=== PATIENT | male | born 1990 | race Caucasian/White ===

== ENCOUNTER 2020-06-27 23:02 | Emergency (ER) | payer BC ==
[2020-06-27] MEDS ORDERED: Aspirin 81 MG Tab.Chew PO ONE (23:27)
[2020-06-27] MEDS ORDERED: Ketorolac 60 MG/2 ML SDV IM ONE (23:28)
--- NOTE | 2020-06-27 23:30 | EDM.PDOC ---
ED HPI GENERAL MEDICAL PROBLEM - General Chief Complaint: Chest Pain Stated Complaint: CHEST PAIN Time Seen by Provider: 06/27/20 23:28 Source of Information: Reports: Patient, Family, RN Notes Reviewed History Limitations: Reports: No Limitations - History of Present Illness INITIAL COMMENTS - FREE TEXT/NARRATIVE: 30-year-old gentleman presents emergency department a complaint of chest pain, he states that chest pain started 1 hour prior sharp stabbing in nature predominantly under his left breast denies any trauma states does have family history with father with coronary artery disease no nausea no diaphoresis no shortness of breath Chest Pain Score (Numeric/FACES): 10 - Related Data Allergies Allergy/AdvReac Type Severity Reaction Status Date / Time amoxicillin Allergy Hives Verified 06/27/20 23:17 latex Allergy Hives Verified 06/27/20 23:17 Penicillins Allergy Hives Verified 06/27/20 23:17 Home Meds: Home Meds Escitalopram Oxalate [Lexapro] 15 mg PO DAILY 06/27/20 [History] Mirtazapine [Remeron] 15 mg PO BEDTIME 06/27/20 [History] hydrOXYzine HCL [Atarax] 25 mg PO DAILY 06/27/20 [History] Past Medical History Musculoskeletal History: Reports: Fracture Psychiatric History: Reports: Anxiety, Depression - Past Surgical History HEENT Surgical History: Reports: Adenoidectomy, Tonsillectomy Musculoskeletal Surgical History: Reports: Arthroscopic Knee, Shoulder Surgery Other Musculoskeletal Surgeries/Procedures:: ankle surgery. neck surgery Social & Family History - Tobacco Use Tobacco Use Status *Q: Never Tobacco User - Recreational Drug Use Recreational Drug Use: No ED ROS GENERAL - Review of Systems Review Of Systems: See Below Constitutional: Reports: No Symptoms Respiratory: Reports: No Symptoms Cardiovascular: Reports: Chest Pain GI/Abdominal: Reports: No Symptoms ED EXAM, GENERAL - Physical Exam Exam: See Below Exam Limited By: No Limitations General Appearance: Alert, WD/WN, No Apparent Distress Respiratory/Chest: No Respiratory Distress, Lungs Clear, Normal Breath Sounds, No Accessory Muscle Use, Chest Non-Tender, Other (tender over left breast, chest wall area) Cardiovascular: Regular Rate, Rhythm, No Murmur GI/Abdominal: Soft, Non-Tender Extremities: No Pedal Edema #1 Interpretation EKG Date: 06/28/20 Rhythm: NSR [place]: Normal P-Wave: Present QRS: Normal ST-T: Normal QT: Normal Comparison: NA - No Prior EKG Course - Vital Signs Last Recorded V/S: Last Vital Signs Temp 97.8 F 06/27/20 23:14 Pulse 114 H 06/27/20 23:14 Resp 20 06/27/20 23:14 BP 135/82 06/27/20 23:14 Pulse Ox 97 06/27/20 23:14 - Orders/Labs/Meds Orders: Active Orders 24 hr Category Date Time Status Cardiac Monitoring [RC] .As Directed Care 06/27/20 23:27 Active EKG Documentation Completion [RC] ASDIRECTED Care 06/27/20 23:28 Active Chest 1V Frontal [CR] Stat Exams 06/27/20 23:28 Taken EKG 12 Lead [EK] Stat Ther 06/27/20 23:28 Ordered Labs: Laboratory Tests 06/27/20 06/27/20 06/27/20 Range/Units 23:39 23:39 23:39 WBC 8.1 (4.5-11.0) K/uL RBC 5.30 (4.30-5.90) M/uL Hgb 16.2 H (12.0-15.0) g/dL Hct 47.2 (40.0-54.0) % MCV 89 (80-98) fL MCH 31 (27-31) pg MCHC 34 (32-36) % Plt Count 329 (150-400) K/uL Neut % (Auto) 62 (36-66) % Lymph % (Auto) 30 (24-44) % [place] % (Auto) 6 (2-6) % Eos % (Auto) 1 L (2-4) % Baso % (Auto) 1 (0-1) % Sodium 143 (140-148) mmol/L Potassium 3.6 (3.6-5.2) mmol/L Chloride 106 (100-108) mmol/L Carbon Dioxide 18 L (21-32) mmol/L Anion Gap 22.6 H (5.0-14.0) mmol/L BUN 16 (7-18) mg/dL Creatinine 1.0 (0.8-1.3) mg/dL Est Cr Clr Drug Dosing 123.30 mL/min Estimated GFR (MDRD) > 60 (>60) Glucose 130 H (74-106) mg/dL Calcium 9.2 (8.5-10.1) mg/dL Total Bilirubin 0.5 (0.2-1.0) mg/dL AST 18 (15-37) U/L ALT 41 (12-78) U/L Alkaline Phosphatase 87 (46-116) U/L Troponin I < 0.017 (0.000-0.056) ng/mL Total Protein 7.6 (6.4-8.2) g/dL Albumin 4.1 (3.4-5.0) g/dL Globulin 3.5 (2.3-3.5) g/dL Albumin/Globulin Ratio 1.2 (1.2-2.2) Ethyl Alcohol 74 mg/dL Meds: Medications Discontinued Medications Generic Name Dose Route Start Last Admin Trade Name Freq PRN Reason Stop Dose Admin Aspirin 324 mg 06/27/20 23:27 06/27/20 23:36 Aspirin 81 Mg Tab.Chew PO 06/27/20 23:28 324 mg ONETIME ONE Administration Ketorolac Tromethamine 60 mg 06/27/20 23:28 06/27/20 23:37 Ketorolac 60 Mg/2 Ml Sdv IM 06/27/20 23:29 60 mg ONETIME ONE Administration Departure - Departure Time of Disposition: 00:31 Disposition: Home, Self-Care 01 Condition: Fair Clinical Impression: Chest wall pain Instructions: Nonspecific Chest Pain, Adult Referrals: Ayanna Slade PA-C [Primary Care Provider] - Forms: ED Department Discharge Additional Instructions: Continue to use Tylenol or Motrin as needed for pain control, please followup with your primary care provider in 3-5 days if not better, please call return to the emergency department with worsening of symptoms. Sepsis Event Note (ED) - Evaluation Sepsis Screening Result: No Definite Risk - Focused Exam Vital Signs: Vital Signs Temp Pulse Resp BP Pulse Ox 06/27/20 23:14 97.8 F 114 H 20 135/82 97 - My Orders Last 24 Hours: My Active Orders 06/27/20 23:27 Cardiac Monitoring [RC] .As Directed 06/27/20 23:28 EKG Documentation Completion [RC] ASDIRECTED Chest 1V Frontal [CR] Stat EKG 12 Lead [EK] Stat - Assessment/Plan Last 24 Hours: My Active Orders 06/27/20 23:27 Cardiac Monitoring [RC] .As Directed 06/27/20 23:28 EKG Documentation Completion [RC] ASDIRECTED Chest 1V Frontal [CR] Stat EKG 12 Lead [EK] Stat Plan: Assessment Acuity = acute Site and laterality = chest wall pain Etiology = unknown Manifestations = none Location of injury = Home Lab values = CBC, CMP, troponin, EKG, chest x-ray all within normal limits alcoh ol is 74 Plan Good relief with Toradol provided in the emergency department and follow-up primary care 3 to 5 days if not better This note was dictated using [employer] voice recognition software please call with any questions on syntax or grammar.
--- NOTE | 2020-06-28 10:52 | CR ---
CHEST: Portable 06/27/2020 11:53 PM CLINICAL HISTORY:Chest pain COMPARISON:None FINDINGS: There is less than optimal inspiration. This exaggerates lung markings. No infiltrate effusion or pneumothorax seen. IMPRESSION: Poor inspiratory level No acute cardiopulmonary process
== END 2020-06-28 00:47 | disposition home or self-care (01) ==
LOC: JP.ED 23:02
DX: R07.89 Other chest pain (principal); Z88.0 Allergy status to penicillin; Z91.040 Latex allergy status
CPT/HCPCS: 36415; 71045; 71045-26; 80053; 80307; 84484; 85025; 93005; 96372; 99283; 99285-25; A9270-GY; J1885

== ENCOUNTER 2020-12-13 22:23 | Emergency (ER) | payer BC, OTHER ==
--- NOTE | 2020-12-13 22:31 | EDM.PDOC ---
ED HPI GENERAL MEDICAL PROBLEM - General Chief Complaint: Laceration Stated Complaint: CUT RIGHT HAND Time Seen by Provider: 12/13/20 22:28 Source of Information: Reports: Patient - History of Present Illness INITIAL COMMENTS - FREE TEXT/NARRATIVE: Rocco Frias presents with an acute laceration to right hand after he punched glass that broke prior to arrival at home. he was frustrated from "working on a motor that won". he notes laceration to dorsum of right hand. he is right handed. he notes the glass did "break". denies pain with finger movement or limitation of movement from pain. . not on blood thinners no numbness not on steroids did drink alcohol tonight. no other injury previous laceration 1 year ago, repaired at that time and td updated 1 year ago. Right Hand Pain Score (Numeric/FACES): 0 - Related Data Allergies Allergy/AdvReac Type Severity Reaction Status Date / Time amoxicillin Allergy Hives Verified 06/27/20 23:17 latex Allergy Hives Verified 06/27/20 23:17 Penicillins Allergy Hives Verified 06/27/20 23:17 Home Meds: Home Meds Escitalopram Oxalate [Lexapro] 15 mg PO DAILY 06/27/20 [History] Mirtazapine [Remeron] 15 mg PO BEDTIME 06/27/20 [History] hydrOXYzine HCL [Atarax] 25 mg PO DAILY 06/27/20 [History] Past Medical History Musculoskeletal History: Reports: Fracture Psychiatric History: Reports: Anxiety, Depression - Past Surgical History HEENT Surgical History: Reports: Adenoidectomy, Tonsillectomy Musculoskeletal Surgical History: Reports: Arthroscopic Knee, Shoulder Surgery Other Musculoskeletal Surgeries/Procedures:: ankle surgery. neck surgery ED ROS GENERAL - Review of Systems Review Of Systems: See Below (all other 10 negative. No fever, runny nose, sore throat, change in taste or smell. Is not Covid vaccinated. He notes a slight laceration to his right hand as above. he rePorts a previous remote laceration to a finger repaired approximate year ago.) ED EXAM, SKIN/RASH Exam: See Below (3.7 cm clean linear laceration to the dorsum of his right hand. This does violate the epidermis. Small 1 mm fragment of glass of the dermal margin. We was explored deeply no deeper injury.) Exam Limited By: No Limitations General Appearance: Alert, Other (talking on his cell phone to his "grandcristi" upon ED arrival. ) Throat/Mouth: Other (talkative. ) Head: Normocephalic Neck: Normal Inspection Respiratory/Chest: No Respiratory Distress Cardiovascular: Normal Peripheral Pulses, Other (normal cap refil) Extremities: Other (abrasion over forearm. no tenderness to elbow, wrist or scaphoid. full rom of elbow, wrist and hand, fingers. ) Neurological: Alert, Oriented, Other (gcs 15. intact distal sensory. intact median, radial, ulnar motor and sensory. ) Psychiatric: Normal Affect, Other (admit to etoh use tonight. did not drive to hospital. jovial, tangential, telling jokes. ) Skin: Wound/Incision (dorsum or right hand over 5th mcp joint (patient denies fight bite). intact extension of 4th/5th fingers without pain), Other ED SKIN PROCEDURES - Laceration/Wound Repair Right Dorsal Hand Appearance: Subcutaneous, Clean Distal NVT: Neuro & Vascular Intact, No Tendon Injury Anesthetic Type: Local Local Anesthesia - Lidocaine (Xylocaine): 1% Plain Local Anesthetic Volume: 3cc Skin Prep: Chlorhexidine (Hibiciens), Saline, Sterile Drape Saline Irrigation (cc's): 200 Exploration/Debridement/Repair: Wound Explored, Explored to Base, Minimal Debridement, Other (sharp iris scissors) Closed with: Sutures Lac/Wound length In cm: 3.7 Suture Size: 5-0 # of Sutures: 8 Suture Type: Nylon Drain Placement: No Sterile Dressing Applied: Nurse Tetanus Status Addressed: Yes Complication Description: explored to base. no evidence of tendon or joint involvement. 1 small 1 mm piece of glass at dermal edge removed prior to closure. Course - Vital Signs Text/Narrative:: Patient is right-handed that presents after he punched a glass at home that shattered. He notes that he thinks it is unlikely he broke his hand but does admit he certainly could have occult glass or foreign body. Patient has no signs of neurologic abnormalities. His tetanus is up-to-date. Patient has a quite jovial affect and admits to alcohol use tonight. He is not immune compromise. lidocaine 3 mls via 27 g needle. tolerated well. hand soaked and wound irrigated on dorsum of hand. abrasions to right forearm cleansed as well. patient voiced understanding of risk of fb/glass and agreed with xrays reluctantly. 2258: X-ray three-view right hand reviewed in radiology suite. There is no fracture. No dislocation. There is a 1 mm opacity that could be occult foreign body or spicule of glass in the very dorsum of his right hand distal to the area of laceration. 2310: laceration repaired. fb removed and wound copiously irrigated, explored and repaired. risk of occult fb, occult injury or fracture reviewed and understood. patient notes "i'm going to pull these out and use my hand". I recommended hand rest, work restriction and to keep clean, dry and covered as well as need for suture removal in 14 day and reasons to return. patient voiced understanding. This note was completed with voice recognition and may contain errors in grammar, punctuation etc. Of note verbal instructions were also provided to the patient's family via phone who voiced understanding of his need for follow-up and suture removal. I also reviewed the x-ray over read process. Last Recorded V/S: Last Vital Signs Temp 36.5 C 12/13/20 22:32 Pulse 88 12/13/20 22:32 Resp 16 12/13/20 22:32 BP 153/78 H 12/13/20 22:32 Pulse Ox 99 12/13/20 22:32 - Orders/Labs/Meds Orders: Active Orders 24 hr Category Date Time Status Hand Comp Min 3V Rt [CR] Stat Exams 12/13/20 22:39 Taken Meds: Medications Discontinued Medications Generic Name Dose Route Start Last Admin Trade Name Amanda PRN Reason Stop Dose Admin Lidocaine HCl 20 ml 12/13/20 22:35 12/13/20 22:46 Lidocaine 1% 20 Ml Mdv INJECT 12/13/20 22:36 20 ml ONETIME ONE Administration Departure - Departure Time of Disposition: 23:20 Disposition: Home, Self-Care 01 Condition: Good Clinical Impression: Hand laceration, Arm abrasion - Discharge Information *PRESCRIPTION DRUG MONITORING PROGRAM REVIEWED*: Not Applicable *COPY OF PRESCRIPTION DRUG MONITORING REPORT IN PATIENT CROW: Not Applicable Instructions: Laceration Care, Adult, Sutures, [place], or Adhesive Wound Closure, [id number] Additional Instructions: Keep your hand clean dry and covered. Today's x-rays reviewed preliminary. Final x-ray report/read by radiologist will occur in the next day. There is always a chance of retained or occult foreign body or deeper hand injury. Your tetanus is noted to be up-to-date. Please return if fever, uncontrolled pain, skin redness, tachycardia 100.4. Please see attached discharge instructions regarding laceration care. Have sutures removed in 10 to 14 days. Care Plan Goals: Please keep your hand clean dry and covered. Sutures removed in 14 days. Minimize gripping or grasping. Your x-rays today are preliminary negative for fracture. There was a small 1 mm piece of glass that I removed prior to closing the wound. Your 8 sutures should be removed in 14 days. Please return for suture removal or see your prior care physician. Do not drive today. drink alcohol in moderation. do not punch items. Sepsis Event Note (ED) - Focused Exam Vital Signs: Vital Signs Temp Pulse Resp BP Pulse Ox 12/13/20 22:32 36.5 C 88 16 153/78 H 99 - My Orders Last 24 Hours: My Active Orders 12/13/20 22:39 Hand Comp Min 3V Rt [CR] Stat - Assessment/Plan Last 24 Hours: My Active Orders 12/13/20 22:39 Hand Comp Min 3V Rt [CR] Stat
[2020-12-13] MEDS ORDERED: Lidocaine 1% 20 ML MDV INJECT ONE (22:35)
--- NOTE | 2020-12-14 09:29 | CR ---
Hand Comp Min 3V Rt CLINICAL HISTORY: Punched glass FINDINGS: There is no acute fracture or dislocation of the hand. There is a small radiopacity in the dorsal lateral aspect near the fifth MCP joint. Impression: No fracture Small foreign body near the right fifth MCP joint
== END 2020-12-13 23:24 | disposition home or self-care (01) ==
LOC: JP.ED 22:23
DX: S61.411A Laceration without foreign body of right hand, initial encounter (principal); S50.811A Abrasion of right forearm, initial encounter; Z91.040 Latex allergy status; Z88.0 Allergy status to penicillin; W25.XXXA Contact with sharp glass, initial encounter; Y92.009 Unspecified place in unspecified non-institutional (private) residence as the place of occurrence of the external cause
CPT/HCPCS: 12002; 73130-26-RT; 73130-RT; 99283-25

== ENCOUNTER 2022-02-19 23:41 | Emergency (ER) | payer OTHER ==
[2022-02-19] MEDS ORDERED: Ondansetron 4 MG Tab.DIS PO ONE (23:58)
[2022-02-20 00:13] LABS: ESTIMATED GFR 102 mL/min (>60)
== END 2022-02-20 00:42 | disposition home or self-care (01) ==
LOC: JP.ED 23:41
DX: F10.920 Alcohol use, unspecified with intoxication, uncomplicated (principal); E10.9 Type 1 diabetes mellitus without complications; Z86.16 Personal history of COVID-19; Z88.0 Allergy status to penicillin; Z88.1 Allergy status to other antibiotic agents; Z91.040 Latex allergy status; Y90.6 Blood alcohol level of 120-199 mg/100 ml
CPT/HCPCS: 36415; 80053; 80307; 81001; 82947; 83690; 85025; 99284; Q0162

== ENCOUNTER 2022-03-01 23:30 | Emergency (ER) | payer OTHER | END 2022-03-02 05:47 | disposition home or self-care (01) | LOC: JP.ED 23:30 | DX: R45.851 Suicidal ideations (principal); F10.129 Alcohol abuse with intoxication, unspecified; E10.9 Type 1 diabetes mellitus without complications; Z88.0 Allergy status to penicillin; Z91.040 Latex allergy status; Z88.1 Allergy status to other antibiotic agents; Z79.899 Other long term (current) drug therapy | CPT/HCPCS: 36415; 80305-QW; 80307; 99284 ==

== ENCOUNTER 2022-05-08 13:51 | Emergency (ER) | payer OTHER ==
[2022-05-08] MEDS ORDERED: Sodium Chloride 0.9% 1,000 ML IV STA (14:22)
[2022-05-08] MEDS ORDERED: fentaNYL 100 MCG/2 ML SDV IVPUSH ONE ×2 (14:23→16:15)
[2022-05-08] MEDS ORDERED: Ondansetron 4 MG/2 ML SDV IVPUSH ONE (14:23)
[2022-05-08] MEDS: Sodium Chloride 0.9% 10 ML Syringe FLUSH PRN ×2 (14:43→15:13)
[2022-05-08] MEDS ORDERED: Iopamidol 612 MG/ML 100 ML Bottle IV PRN (14:58)
[2022-05-08] MEDS ORDERED: Sodium Chloride 0.9% 50 ML IV SCH (15:00)
[2022-05-08 15:10] LABS: ESTIMATED GFR 101 mL/min (>60)
[2022-05-08 15:11] LABS: TROPONIN I HIGH SENSITIVITY < 4.0 pg/mL (<=60.3)
[2022-05-08] MEDS ORDERED: Sodium Chloride 0.9% 1,000 ML IV SCH (16:30)
== END 2022-05-08 17:15 | disposition home or self-care (01) ==
LOC: JP.ED 13:51
DX: K59.04 Chronic idiopathic constipation (principal); Z88.0 Allergy status to penicillin; Z88.8 Allergy status to other drugs, medicaments and biological substances; Z91.040 Latex allergy status; Z72.0 Tobacco use
CPT/HCPCS: 36415; 74177; 80053; 81001; 83605; 83690; 84484; 85025; 96361; 96374; 96375; 96376; 99283; 99284; J2405; J3010; J3490; J7030; Q9967

== ENCOUNTER 2023-04-14 18:29 | Emergency (ER) | payer OTHER ==
[2023-04-14] MEDS ORDERED: Ketorolac 30 MG/ML SDV IM ONE (19:11)
[2023-04-14 19:18] LABS: BASOPHILS ABSOLUTE AUTO 0.07 K/uL (0.00-0.10); BASOPHILS PERCENT AUTO 0.8 % (0.1-1.3); EOSINOPHILS ABSOLUTE AUTO 0.12 K/uL (0.00-0.40); EOSINOPHILS PERCENT AUTO 1.4 % (0.0-5.4); HEMATOCRIT 45.5 % (38.4-49.7); HEMOGLOBIN 16.5 g/dL (12.9-16.9); IMMATURE GRAN ABSOLUTE AUTO 0.02 K/uL (0.00-0.23); IMMATURE GRAN PERCENT AUTO 0.2 % (0.0-0.7); LYMPHOCYTES ABSOLUTE AUTO 3.74 K/uL (0.8-3.3); LYMPHOCYTES PERCENT AUTO 42.6 % (11.4-47.7); MEAN CORPUSCULAR HEMOGLOBIN 31.5 pg (31.6-35.5); MEAN CORPUSCULAR HGB CONC 36.3 g/dL (31.6-35.5); MONOCYTES ABSOLUTE AUTO 0.47 K/uL (0.20-0.90); MONOCYTES PERCENT AUTO 5.4 % (3.3-12.6); NEUTROPHILS ABSOLUTE AUTO 4.35 K/uL (1.0-7.6); NEUTROPHILS PERCENT AUTO 49.6 % (40.0-78.1); PLATELET COUNT,PLT 263 K/uL (130-375); RED BLOOD CELL COUNT 5.23 M/uL (4.14-5.76); WHITE BLOOD CELL COUNT,WBC 8.8 K/uL (3.2-11.0)
[2023-04-14 19:38] LABS: A/G RATIO 1.2 (1.2-2.2); ALANINE AMINOTRANSFERASE,ALT 40 U/L (12-78); ALKALINE PHOSPHATASE 73 U/L (46-116); ASPARTATE AMNIOTRANSFERASE,AST 20 U/L (15-37); BILIRUBIN TOTAL 0.7 mg/dL (0.2-1.0); BLOOD UREA NITROGEN,BUN 19 mg/dL (7-18); CALCIUM 8.6 mg/dL (8.5-10.1); CARBON DIOXIDE,CO2 25 mmol/L (21-32); CHLORIDE,CL 104 mmol/L (100-108); CREATININE 1.1 mg/dL (0.8-1.3); EST CRCL DRUG DOSING (CG) 108.98 mL/min; ESTIMATED GFR 90 mL/min (>60); GLUCOSE RANDOM 111 mg/dL (74-106); POTASSIUM,K 3.5 mmol/L (3.6-5.2); PROTEIN TOTAL,TP 7.4 g/dL (6.4-8.2); SODIUM,NA 137 mmol/L (140-148)
[2023-04-14 19:39] LABS: ANION GAP 11.5 mmol/L (5.0-14.0)
== END 2023-04-14 21:31 | disposition home or self-care (01) ==
LOC: JP.ED 18:29
DX: H92.01 Otalgia, right ear (principal); Z86.16 Personal history of COVID-19; Z79.899 Other long term (current) drug therapy; Z88.0 Allergy status to penicillin; Z91.040 Latex allergy status
CPT/HCPCS: 36415; 70450; 70486; 80053; 83605; 85025; 86140; 96372; 99284; J1885